=== PATIENT | male | born 1950 | race African-American/Black ===

== ENCOUNTER 2019-02-17 12:04 | Inpatient (IN) | payer OTHER ==
[2019-02-17] VITALS (32 sets, daily range): BP systolic 115–216; BP diastolic 70–147
[~2019-02-17] VITALS: Ht 177.8 cm; Wt 74.4 kg
[2019-02-17 12:49] LABS: HEMATOCRIT. 41.1 % (42.0-52.0); HEMOGLOBIN. 14.2 g/dL (14.0-18.0); MEAN CORPUSCULAR HEMOGLOBIN 32.5 pg (28.0-32.0); MEAN CORPUSCULAR VOLUME 93.9 fL (80.0-94.0); RED BLOOD CELL COUNT 4.37 mill/uL (4.7-6.1)
[2019-02-17 12:55] LABS: CHLORIDE 108 mEq/L (98-107)
[2019-02-17 12:56] LABS: PROTHROMBIN TIME 10.4 sec (9.6-11.0)
[2019-02-17 13:03] LABS: LDL CHOLESTEROL 82 mg/dL (5-100)
[2019-02-17 13:05] LABS: ETHANOL BLOOD < 10 mg/dL
[2019-02-17 13:11] LABS: PLATELET 157 x1000/uL (130-400)
[2019-02-17] MEDS ORDERED: ETOMIDATE 2MG/ML 10ML VIAL IV ONE ×2 (13:30→14:34)
[2019-02-17] MEDS ORDERED: SUCCINYLCHOLINE CHLORIDE 200MG/10ML IV ONE ×2 (13:30→14:34)
[2019-02-17] MEDS ORDERED: HYDRALAZINE 20MG/ML VIAL IV ONE (13:30)
[2019-02-17 13:40] LABS: PLATELET ESTIMATE NORMAL
[2019-02-17] MEDS ORDERED: ONDANSETRON HCL 4MG/2ML INJ IV PRN (13:45)
[2019-02-17] MEDS ORDERED: SODIUM CHLORIDE 0.9% 10ML VIAL ONE (14:34)
[2019-02-17 14:55] LABS: CLARITY URINE CLEAR (CLEAR); COLOR URINE YELLOW (YELLOW); KETONES URINE NEGATIVE (NEGATIVE); LEUKOCYTE ESTERASE URINE NEGATIVE (NEGATIVE); NITRITE URINE NEGATIVE (NEGATIVE); OCCULT BLOOD URINE 2+ (NEGATIVE); PH URINE 7.5 (4.5-8.0); PROTEIN URINE 4+ (NEGATIVE); SPECIFIC GRAVITY URINE 1.014 (1.005-1.030); UROBILINOGEN URINE 0.2 E.U./dL (0.2-1.0)
[2019-02-17] MEDS ORDERED: PIPERACILLIN/TAZOBACTAM 3.375 G in DEXT 5% WATER 100 ML IV SCH (15:00)
[2019-02-17] MEDS ORDERED: IPRATROPIUM/ALBUTEROL 0.5-3(2.5)MG/3ML NEB HHN PRN (15:00)
[2019-02-17] MEDS ORDERED: PROPOFOL 10MG/ML 100ML 100 ML IV SCH (15:00)
[2019-02-17 15:11] LABS: *AMPHETAMINES SCREEN URINE NEGATIVE (NEGATIVE); *BARBITURATES SCREEN URINE NEGATIVE (NEGATIVE); *BENZODIAZEPINES SCREEN URINE NEGATIVE (NEGATIVE); *COCAINE SCREEN URINE NEGATIVE (NEGATIVE); METHADONE URINE SCREEN NEGATIVE (NEGATIVE); OPIATES URINE SCREEN NEGATIVE (NEGATIVE)
[2019-02-17 15:12] LABS: CANNABINOID URINE SCREEN PRESUMTIVE POSITIVE (NEGATIVE); PHENCYCLIDINE URINE SCREEN NEGATIVE (NEGATIVE)
[2019-02-17 15:35] LABS: BG BASE EXCESS -3.8 mmol/L (-2.0-2.0); BG CARBOXYHEMOGLOBIN 0.6 % (0.5-1.5); BG DEOXYHEMOGLOBIN 0.2 % (0.0-5.0); BG HCO3 ACT 19.6 mmol/L (22.0-26.0); BG METHEMOGLOBIN 0.5 % (0.0-1.5); BG OXYGEN SATURATION 99.8 % (92.0-98.5); BG OXYHEMOGLOBIN 98.7 % (94.0-97.0); BG PCO2 31.6 mmHg (35.0-45.0); BG PO2 567.3 mmHg (75.0-100.0); BG SAMPLE SITE RIGHT RADIAL; BG TIDAL VOLUME(mL) 500 mL; BG TOTAL HEMOGLOBIN 16.2 g/dL (12.0-18.0); BG VENT MODE VENT - A/C; BG VENT RATE 16 set
[2019-02-17 15:40] LABS: CREATINE KINASE 184 IU/L (39-308)
[2019-02-17] MEDS ORDERED: LEVETIRACETAM 500 MG in SODIUM CHLORIDE 0.9% 100 ML IV SCH (16:30)
[2019-02-17] MEDS ORDERED: MANNITOL 20% (20GM/100ML) BAG 500ML PREMIX IV ONE (16:30)
[2019-02-17] MEDS ORDERED: NICARDIPINE 100 MG in SODIUM CHLORIDE 0.9% 60 ML IV PRN (16:30)
[2019-02-17] MEDS: NICARDIPINE 100 MG in SODIUM CHLORIDE 0.9% 60 ML IV PRN ×2 (16:45→22:57)
[2019-02-17] MEDS: MORPHINE SULFATE 4 MG/ML CPJ (NOT FOR IM USE) IV PRN ×3 (17:04→19:33)
[2019-02-17] MEDS: DEXT 5%/LACTATED RINGERS 1,000 ML IV SCH (17:04)
[2019-02-17] MEDS ORDERED: MANNITOL 20% 250 ML IV ONE (17:15)
[2019-02-17] MEDS: DEXAMETHASONE 4MG/ML 1ML VIAL IV SCH ×2 (17:27→18:00)
[2019-02-17] MEDS ORDERED: MORPHINE SULFATE 4 MG/ML CPJ (NOT FOR IM USE) IV NR (18:15)
[2019-02-17] MEDS ORDERED: PIPERACILLIN/TAZOBACTAM 2.25 G in DEXTROSE 5% WATER 50 ML IV SCH (18:30)
[2019-02-17] MEDS ORDERED: LEVETIRACETAM 500MG PREMIX 100 ML IV SCH (18:30)
[2019-02-17] MEDS: PROPOFOL 10MG/ML 100ML 100 ML IV PRN (19:41)
[2019-02-17] MEDS ORDERED: MORPHINE SULFATE 2 MG/ML CPJ (NOT FOR IM USE) IV PRN (20:15)
[2019-02-17] MEDS: MORPHINE SULFATE 2 MG/ML CPJ (NOT FOR IM USE) IV PRN ×2 (20:27→21:25)
[2019-02-17] MEDS: IPRATROPIUM/ALBUTEROL 0.5-3(2.5)MG/3ML NEB HHN SCH (20:48)
[2019-02-17] MEDS: PIPERACILLIN/TAZOBACTAM 2.25 G in DEXTROSE 5% WATER 50 ML IV SCH (20:58)
[2019-02-17] MEDS ORDERED: HEPARIN 5000 UNITS/ML VIAL SUBCUT SCH (21:00)
[2019-02-17] MEDS: LEVETIRACETAM 500MG PREMIX 100 ML IV SCH (21:19)
[2019-02-18] VITALS (94 sets, daily range): BP systolic 99–162; BP diastolic 57–99
[2019-02-18 00:07] LABS: HEPATITIS B SURFACE ANTIGEN NEGATIVE
[2019-02-18 00:37] LABS: HEPATITIS A AB IGM NEGATIVE (NEGATIVE)
[2019-02-18] MEDS: DEXAMETHASONE 4MG/ML 1ML VIAL IV SCH ×5 (00:57→23:43)
[2019-02-18] MEDS: PROPOFOL 10MG/ML 100ML 100 ML IV PRN ×2 (01:45→20:44)
[2019-02-18] MEDS: PIPERACILLIN/TAZOBACTAM 2.25 G in DEXTROSE 5% WATER 50 ML IV SCH ×4 (02:38→20:38)
[2019-02-18] MEDS: IPRATROPIUM/ALBUTEROL 0.5-3(2.5)MG/3ML NEB HHN SCH ×4 (02:57→20:34)
[2019-02-18 05:51] LABS: BASOPHILS % 0.2 % (0.0-2.0); HEMATOCRIT. 39.2 % (42.0-52.0); HEMOGLOBIN. 13.5 g/dL (14.0-18.0); LYMPHOCYTES % 10.9 % (20.0-50.0); MEAN CORPUSCULAR HEMOGLOBIN 32.3 pg (28.0-32.0); MEAN CORPUSCULAR VOLUME 93.7 fL (80.0-94.0); MEAN PLATELET VOLUME 9.4 fl (7.4-10.4); MONOCYTES % 3.9 % (2.0-8.0); PLATELET 147 x1000/uL (130-400); RED BLOOD CELL COUNT 4.18 mill/uL (4.7-6.1); RED CELL DISTRIBUTION WIDTH 14.1 % (11.6-14.6)
[2019-02-18 05:55] LABS: CHLORIDE 105 mEq/L (98-107)
[2019-02-18 06:14] LABS: CREATINE KINASE 281 IU/L (39-308); T4 FREE 1.02 ng/dL (0.76-1.46)
[2019-02-18] MEDS: NICARDIPINE 100 MG in SODIUM CHLORIDE 0.9% 60 ML IV PRN ×2 (07:00→17:33)
[2019-02-18] MEDS: LEVETIRACETAM 500MG PREMIX 100 ML IV SCH ×2 (08:24→20:39)
[2019-02-18 09:31] LABS: BG BASE EXCESS -5.8 mmol/L (-2.0-2.0); BG CARBOXYHEMOGLOBIN 0.3 % (0.5-1.5); BG DEOXYHEMOGLOBIN 1.2 % (0.0-5.0); BG FRACTION INSPIRED OXYGEN 40; BG HCO3 ACT 18.3 mmol/L (22.0-26.0); BG METHEMOGLOBIN 0.1 % (0.0-1.5); BG OXYGEN SATURATION 98.8 % (92.0-98.5); BG OXYHEMOGLOBIN 98.4 % (94.0-97.0); BG PH 7.374 (7.350-7.450); BG PO2 158.3 mmHg (75.0-100.0); BG SAMPLE SITE RIGHT RADIAL; BG TIDAL VOLUME(mL) 500 mL; BG VENT MODE VENT - A/C; BG VENT RATE 16 set
[2019-02-18] MEDS: DEXT 5%/LACTATED RINGERS 1,000 ML IV SCH ×2 (12:30→17:00)
[2019-02-18] MEDS: MORPHINE SULFATE 2 MG/ML CPJ (NOT FOR IM USE) IV PRN (14:12)
[2019-02-18] MEDS ORDERED: DEXTROSE 50% WATER 50ML SYRINGE IV PRN (14:15)
[2019-02-18] MEDS: BLOOD SUGAR DIAGNOSTIC STRIP TEST SCH ×2 (17:01→23:42)
[2019-02-18] MEDS: INSULIN LISPRO 100 UNITS/ML SUBCUT SCH ×2 (17:34→23:42)
[2019-02-18 20:30] LABS: *AMPHETAMINES SCREEN URINE NEGATIVE (NEGATIVE); *BARBITURATES SCREEN URINE NEGATIVE (NEGATIVE); *BENZODIAZEPINES SCREEN URINE NEGATIVE (NEGATIVE); *COCAINE SCREEN URINE NEGATIVE (NEGATIVE); METHADONE URINE SCREEN NEGATIVE (NEGATIVE); OPIATES URINE SCREEN PRESUMTIVE POSITIVE (NEGATIVE); PHENCYCLIDINE URINE SCREEN NEGATIVE (NEGATIVE)
[2019-02-18 20:32] LABS: CANNABINOID URINE SCREEN PRESUMTIVE POSITIVE (NEGATIVE)
[2019-02-19] VITALS (85 sets, daily range): BP systolic 114–198; BP diastolic 61–106
[2019-02-19] MEDS: NICARDIPINE 100 MG in SODIUM CHLORIDE 0.9% 60 ML IV PRN ×4 (01:38→23:07)
[2019-02-19] MEDS: IPRATROPIUM/ALBUTEROL 0.5-3(2.5)MG/3ML NEB HHN SCH ×4 (01:46→20:58)
[2019-02-19] MEDS: PIPERACILLIN/TAZOBACTAM 2.25 G in DEXTROSE 5% WATER 50 ML IV SCH ×4 (03:22→21:24)
[2019-02-19] MEDS: BLOOD SUGAR DIAGNOSTIC STRIP TEST SCH ×4 (05:54→23:20)
[2019-02-19] MEDS: PROPOFOL 10MG/ML 100ML 100 ML IV PRN (06:04)
[2019-02-19] MEDS: INSULIN LISPRO 100 UNITS/ML SUBCUT SCH ×4 (06:05→23:16)
[2019-02-19] MEDS: DEXAMETHASONE 4MG/ML 1ML VIAL IV SCH ×4 (06:05→23:05)
[2019-02-19 06:28] LABS: BASOPHILS % 0.2 % (0.0-2.0); HEMOGLOBIN. 12.8 g/dL (14.0-18.0); LYMPHOCYTES % 7.7 % (20.0-50.0); MEAN CORPUSCULAR HEMOGLOBIN 32.5 pg (28.0-32.0); MEAN PLATELET VOLUME 9.2 fl (7.4-10.4); MONOCYTES % 3.3 % (2.0-8.0); NEUTROPHILS % 88.8 % (40.0-76.0); PLATELET 142 x1000/uL (130-400); RED BLOOD CELL COUNT 3.94 mill/uL (4.7-6.1); RED CELL DISTRIBUTION WIDTH 14.3 % (11.6-14.6)
[2019-02-19 06:46] LABS: PHOSPHORUS 6.2 mg/dL (2.5-4.9)
[2019-02-19] MEDS: LEVETIRACETAM 500MG PREMIX 100 ML IV SCH ×2 (08:34→21:23)
[2019-02-19 09:11] LABS: CREATINE KINASE 213 IU/L (39-308)
[2019-02-19 10:44] LABS: BG BASE EXCESS -5.5 mmol/L (-2.0-2.0); BG CARBOXYHEMOGLOBIN 0.2 % (0.5-1.5); BG FRACTION INSPIRED OXYGEN 40; BG HCO3 ACT 18.1 mmol/L (22.0-26.0); BG METHEMOGLOBIN 0.3 % (0.0-1.5); BG OXYHEMOGLOBIN 98.5 % (94.0-97.0); BG PH 7.399 (7.350-7.450); BG PO2 182.4 mmHg (75.0-100.0); BG SAMPLE SITE RIGHT RADIAL; BG TIDAL VOLUME(mL) 500 mL; BG VENT MODE VENT - A/C; BG VENT RATE 16 set
[2019-02-19] MEDS ORDERED: PROPOFOL 10MG/ML 100ML 100 ML IV PRN (11:00)
[2019-02-19] MEDS: DEXT 5%/LACTATED RINGERS 1,000 ML IV SCH (13:26)
[2019-02-19] MEDS ORDERED: MORPHINE SULFATE 2 MG/ML CPJ (NOT FOR IM USE) IV NR (15:21)
[2019-02-19 16:02] LABS: BG BASE EXCESS -6.4 mmol/L (-2.0-2.0); BG CARBOXYHEMOGLOBIN 0.1 % (0.5-1.5); BG DEOXYHEMOGLOBIN 1.2 % (0.0-5.0); BG FRACTION INSPIRED OXYGEN 40; BG HCO3 ACT 18.1 mmol/L (22.0-26.0); BG METHEMOGLOBIN 0.2 % (0.0-1.5); BG OXYGEN SATURATION 98.8 % (92.0-98.5); BG OXYHEMOGLOBIN 98.5 % (94.0-97.0); BG PCO2 33.2 mmHg (35.0-45.0); BG PH 7.355 (7.350-7.450); BG PRESSURE SUPPORT 8; BG SAMPLE SITE RIGHT RADIAL; BG TOTAL HEMOGLOBIN 13.4 g/dL (12.0-18.0); BG VENT MODE VENT - CPAP
[2019-02-20] VITALS (93 sets, daily range): BP systolic 105–199; BP diastolic 39–135
[2019-02-20] MEDS: MORPHINE SULFATE 2 MG/ML CPJ (NOT FOR IM USE) IV PRN (01:01)
[2019-02-20] MEDS: IPRATROPIUM/ALBUTEROL 0.5-3(2.5)MG/3ML NEB HHN SCH ×4 (03:14→20:29)
[2019-02-20] MEDS: NICARDIPINE 100 MG in SODIUM CHLORIDE 0.9% 60 ML IV PRN ×3 (05:59→18:50)
[2019-02-20 06:08] LABS: HEMATOCRIT. 33.5 % (42.0-52.0); HEMOGLOBIN. 11.3 g/dL (14.0-18.0); MEAN CORPUSCULAR VOLUME 94.5 fL (80.0-94.0); MEAN PLATELET VOLUME 9.4 fl (7.4-10.4); PLATELET 138 x1000/uL (130-400); RED BLOOD CELL COUNT 3.54 mill/uL (4.7-6.1); RED CELL DISTRIBUTION WIDTH 14.5 % (11.6-14.6)
[2019-02-20 06:09] LABS: HIV SCREEN 4G Non Reactive (Non Reactive)
[2019-02-20] MEDS: DEXAMETHASONE 4MG/ML 1ML VIAL IV SCH ×4 (06:34→23:57)
[2019-02-20] MEDS: PIPERACILLIN/TAZOBACTAM 2.25 G in DEXTROSE 5% WATER 50 ML IV SCH ×3 (06:34→22:12)
[2019-02-20] MEDS: BLOOD SUGAR DIAGNOSTIC STRIP TEST SCH ×4 (06:40→23:47)
[2019-02-20] MEDS: INSULIN LISPRO 100 UNITS/ML SUBCUT SCH ×4 (06:44→23:57)
[2019-02-20 07:44] LABS: BG BASE EXCESS -5.1 mmol/L (-2.0-2.0); BG CARBOXYHEMOGLOBIN 0.3 % (0.5-1.5); BG HCO3 ACT 18.6 mmol/L (22.0-26.0); BG METHEMOGLOBIN 0.2 % (0.0-1.5); BG OXYHEMOGLOBIN 93.5 % (94.0-97.0); BG PCO2 30.5 mmHg (35.0-45.0); BG PH 7.403 (7.350-7.450); BG PO2 73.7 mmHg (75.0-100.0); BG SAMPLE SITE RIGHT RADIAL; BG TOTAL HEMOGLOBIN 12.1 g/dL (12.0-18.0); BG VENT MODE ROOM AIR
[2019-02-20] MEDS: LEVETIRACETAM 500MG PREMIX 100 ML IV SCH ×2 (08:36→20:56)
[2019-02-20] MEDS: DEXT 5%/LACTATED RINGERS 1,000 ML IV SCH (08:47)
[2019-02-20] MEDS ORDERED: LABETALOL 5MG/ML SYR 20 MG/4 ML SYRINGE IV SCH (12:30)
[2019-02-20] MEDS ORDERED: AMLODIPINE 5MG TABLET PO SCH (12:30)
[2019-02-20 12:41] LABS: PLATELET ESTIMATE NORMAL
[2019-02-20] MEDS: AMLODIPINE 5MG TABLET PO SCH ×2 (13:36→17:40)
[2019-02-20] MEDS: METOPROLOL TARTRATE 25MG TABLET PO SCH ×2 (13:36→20:20)
[2019-02-20] MEDS ORDERED: POTASSIUM CHLORIDE 20MEQ/PACKET PO SCH ×2 (20:00→22:00)
[2019-02-21] VITALS (85 sets, daily range): BP systolic 102–191; BP diastolic 49–169
[2019-02-21] MEDS: NICARDIPINE 100 MG in SODIUM CHLORIDE 0.9% 60 ML IV PRN ×4 (02:14→23:44)
[2019-02-21] MEDS: IPRATROPIUM/ALBUTEROL 0.5-3(2.5)MG/3ML NEB HHN SCH ×4 (02:43→20:05)
[2019-02-21] MEDS: MORPHINE SULFATE 2 MG/ML CPJ (NOT FOR IM USE) IV PRN ×3 (03:55→23:23)
[2019-02-21] MEDS: HYDRALAZINE 20MG/ML VIAL IV PRN ×2 (04:37→10:19)
[2019-02-21 05:20] LABS: HEMATOCRIT. 32.8 % (42.0-52.0); HEMOGLOBIN. 11.3 g/dL (14.0-18.0); MEAN CORPUSCULAR HEMOGLOBIN 32.6 pg (28.0-32.0); MEAN CORPUSCULAR VOLUME 94.9 fL (80.0-94.0); MEAN PLATELET VOLUME 9.1 fl (7.4-10.4); PLATELET 141 x1000/uL (130-400); RED BLOOD CELL COUNT 3.45 mill/uL (4.7-6.1); RED CELL DISTRIBUTION WIDTH 14.3 % (11.6-14.6)
[2019-02-21] MEDS: BLOOD SUGAR DIAGNOSTIC STRIP TEST SCH ×4 (05:30→23:24)
[2019-02-21] MEDS: PIPERACILLIN/TAZOBACTAM 2.25 G in DEXTROSE 5% WATER 50 ML IV SCH ×3 (05:36→20:50)
[2019-02-21] MEDS: INSULIN LISPRO 100 UNITS/ML SUBCUT SCH ×4 (05:36→23:25)
[2019-02-21] MEDS: DEXAMETHASONE 4MG/ML 1ML VIAL IV SCH ×4 (05:36→23:23)
[2019-02-21] MEDS: DEXT 5%/LACTATED RINGERS 1,000 ML IV SCH ×2 (05:42→20:51)
[2019-02-21] MEDS: METOPROLOL TARTRATE 25MG TABLET PO SCH (08:35)
[2019-02-21] MEDS: AMLODIPINE 5MG TABLET PO SCH ×3 (08:35→17:24)
[2019-02-21] MEDS: ACETAMINOPHEN 325MG TABLET PO PRN (08:35)
[2019-02-21] MEDS: LEVETIRACETAM 500MG PREMIX 100 ML IV SCH ×2 (08:36→20:50)
[2019-02-21 11:14] LABS: PLATELET ESTIMATE NORMAL
[2019-02-21] MEDS ORDERED: POTASSIUM CHLORIDE 20MEQ/PACKET PO SCH (12:15)
[2019-02-21] MEDS: LABETALOL HCL 200MG TABLET PO SCH ×2 (13:03→20:51)
[2019-02-22] VITALS (72 sets, daily range): BP systolic 119–182; BP diastolic 69–125
[2019-02-22] MEDS: IPRATROPIUM/ALBUTEROL 0.5-3(2.5)MG/3ML NEB HHN SCH ×4 (02:39→20:45)
[2019-02-22 05:37] LABS: HEMATOCRIT. 35.3 % (42.0-52.0); MEAN CORPUSCULAR HEMOGLOBIN 32.2 pg (28.0-32.0); MEAN CORPUSCULAR VOLUME 94.5 fL (80.0-94.0); MEAN PLATELET VOLUME 9.5 fl (7.4-10.4); PLATELET 136 x1000/uL (130-400); RED BLOOD CELL COUNT 3.73 mill/uL (4.7-6.1); RED CELL DISTRIBUTION WIDTH 14.6 % (11.6-14.6)
[2019-02-22] MEDS: PIPERACILLIN/TAZOBACTAM 2.25 G in DEXTROSE 5% WATER 50 ML IV SCH ×3 (06:15→21:58)
[2019-02-22] MEDS: HYDRALAZINE 20MG/ML VIAL IV PRN (06:16)
[2019-02-22] MEDS: DEXAMETHASONE 4MG/ML 1ML VIAL IV SCH ×3 (06:16→17:53)
[2019-02-22] MEDS: BLOOD SUGAR DIAGNOSTIC STRIP TEST SCH ×3 (06:17→17:49)
[2019-02-22] MEDS: INSULIN LISPRO 100 UNITS/ML SUBCUT SCH ×3 (06:19→17:49)
[2019-02-22] MEDS: NICARDIPINE 100 MG in SODIUM CHLORIDE 0.9% 60 ML IV PRN ×3 (06:48→22:17)
[2019-02-22] MEDS: SODIUM CHLORIDE 0.45% 1,000 ML IV SCH (07:55)
[2019-02-22] MEDS: LABETALOL HCL 200MG TABLET PO SCH ×2 (08:36→21:57)
[2019-02-22] MEDS: AMLODIPINE 5MG TABLET PO SCH ×3 (08:36→17:53)
[2019-02-22] MEDS: LEVETIRACETAM 500MG PREMIX 100 ML IV SCH ×2 (08:38→21:57)
[2019-02-22] MEDS ORDERED: LORAZEPAM 2MG/ML CPJ IV SCH ×2 (11:30→16:45)
[2019-02-22 13:18] LABS: PLATELET ESTIMATE NORMAL
[2019-02-22] MEDS ORDERED: LORAZEPAM 2MG/ML CPJ IV PRN (21:00)
[2019-02-22] MEDS: MORPHINE SULFATE 2 MG/ML CPJ (NOT FOR IM USE) IV PRN (22:09)
[2019-02-23] VITALS (95 sets, daily range): BP systolic 26–177; BP diastolic 16–98
[2019-02-23] MEDS: INSULIN LISPRO 100 UNITS/ML SUBCUT SCH ×4 (01:06→18:25)
[2019-02-23] MEDS: DEXAMETHASONE 4MG/ML 1ML VIAL IV SCH ×4 (01:10→18:25)
[2019-02-23] MEDS: IPRATROPIUM/ALBUTEROL 0.5-3(2.5)MG/3ML NEB HHN SCH ×4 (01:15→20:33)
[2019-02-23] MEDS: MORPHINE SULFATE 2 MG/ML CPJ (NOT FOR IM USE) IV PRN (02:10)
[2019-02-23] MEDS: SODIUM CHLORIDE 0.45% 1,000 ML IV SCH (04:21)
[2019-02-23] MEDS: NICARDIPINE 100 MG in SODIUM CHLORIDE 0.9% 60 ML IV PRN ×3 (05:08→19:45)
[2019-02-23] MEDS: BLOOD SUGAR DIAGNOSTIC STRIP TEST SCH ×4 (06:00→17:56)
[2019-02-23 06:25] LABS: HEMATOCRIT. 36.6 % (42.0-52.0); HEMOGLOBIN. 12.3 g/dL (14.0-18.0); MEAN CORPUSCULAR HEMOGLOBIN 31.9 pg (28.0-32.0); MEAN CORPUSCULAR VOLUME 94.7 fL (80.0-94.0); MEAN PLATELET VOLUME 9.6 fl (7.4-10.4); PLATELET 145 x1000/uL (130-400); RED BLOOD CELL COUNT 3.86 mill/uL (4.7-6.1); RED CELL DISTRIBUTION WIDTH 14.9 % (11.6-14.6)
[2019-02-23] MEDS: PIPERACILLIN/TAZOBACTAM 2.25 G in DEXTROSE 5% WATER 50 ML IV SCH ×3 (06:43→21:59)
[2019-02-23] MEDS: AMLODIPINE 5MG TABLET PO SCH ×3 (08:30→22:02)
[2019-02-23] MEDS: LABETALOL HCL 200MG TABLET PO SCH ×3 (08:30→22:00)
[2019-02-23] MEDS: LEVETIRACETAM 500MG PREMIX 100 ML IV SCH ×2 (12:17→21:59)
[2019-02-23 13:00] LABS: PLATELET ESTIMATE NORMAL
[2019-02-23 15:10] LABS: A/G RATIO 1.1 (0.7-1.7); ALBUMIN 3.1 g/dL (2.9-4.4); ALPHA-1-GLOBULIN 0.2 g/dL (0.0-0.4); ALPHA-2-GLOBULIN 0.7 g/dL (0.4-1.0); BETA GLOBULIN 0.8 g/dL (0.7-1.3); GLOBULIN TOTAL 2.7 g/dL (2.2-3.9); M-SPIKE Not Observed g/dL (Not Observed); TOTAL PROTEIN SERUM 5.8 g/dL (6.0-8.5)
[2019-02-23] MEDS: LOSARTAN POTASSIUM 25 MG TABLET PO SCH (18:25)
[2019-02-24] VITALS (92 sets, daily range): BP systolic 118–173; BP diastolic 66–105
[2019-02-24] MEDS: DEXAMETHASONE 4MG/ML 1ML VIAL IV SCH ×4 (00:24→17:35)
[2019-02-24] MEDS: BLOOD SUGAR DIAGNOSTIC STRIP TEST SCH ×4 (00:24→17:39)
[2019-02-24] MEDS: SODIUM CHLORIDE 0.45% 1,000 ML IV SCH (00:31)
[2019-02-24] MEDS: INSULIN LISPRO 100 UNITS/ML SUBCUT SCH ×4 (00:32→17:38)
[2019-02-24] MEDS: IPRATROPIUM/ALBUTEROL 0.5-3(2.5)MG/3ML NEB HHN SCH ×4 (02:10→20:55)
[2019-02-24 05:48] LABS: HEMATOCRIT. 38.5 % (42.0-52.0); MEAN CORPUSCULAR VOLUME 94.9 fL (80.0-94.0); MEAN PLATELET VOLUME 9.5 fl (7.4-10.4); PLATELET 161 x1000/uL (130-400); RED BLOOD CELL COUNT 4.06 mill/uL (4.7-6.1); RED CELL DISTRIBUTION WIDTH 14.6 % (11.6-14.6)
[2019-02-24] MEDS: LABETALOL HCL 200MG TABLET PO SCH ×3 (06:21→21:58)
[2019-02-24] MEDS: PIPERACILLIN/TAZOBACTAM 2.25 G in DEXTROSE 5% WATER 50 ML IV SCH ×3 (06:24→21:57)
[2019-02-24] MEDS: AMLODIPINE 5MG TABLET PO SCH ×2 (08:22→21:56)
[2019-02-24] MEDS: LOSARTAN POTASSIUM 25 MG TABLET PO SCH (08:22)
[2019-02-24] MEDS: LEVETIRACETAM 500MG PREMIX 100 ML IV SCH ×2 (08:22→21:57)
[2019-02-24] MEDS ORDERED: DEXT 5% WATER 500 ML IV ONE (09:30)
[2019-02-24] MEDS: NICARDIPINE 100 MG in SODIUM CHLORIDE 0.9% 60 ML IV PRN ×2 (09:58→17:35)
[2019-02-24 13:10] LABS: PLATELET ESTIMATE NORMAL
[2019-02-24] MEDS: LOSARTAN POTASSIUM 50 MG TABLET PO SCH (21:57)
[2019-02-25] VITALS (96 sets, daily range): BP systolic 122–189; BP diastolic 73–125
[2019-02-25] MEDS: DEXAMETHASONE 4MG/ML 1ML VIAL IV SCH ×4 (00:31→17:29)
[2019-02-25] MEDS: INSULIN LISPRO 100 UNITS/ML SUBCUT SCH ×4 (00:34→17:30)
[2019-02-25] MEDS: BLOOD SUGAR DIAGNOSTIC STRIP TEST SCH ×4 (00:35→17:20)
[2019-02-25] MEDS: IPRATROPIUM/ALBUTEROL 0.5-3(2.5)MG/3ML NEB HHN SCH ×4 (01:18→21:30)
[2019-02-25 05:12] LABS: HEMATOCRIT. 42.8 % (42.0-52.0); HEMOGLOBIN. 14.3 g/dL (14.0-18.0); MEAN CORPUSCULAR HEMOGLOBIN 31.6 pg (28.0-32.0); MEAN CORPUSCULAR VOLUME 94.8 fL (80.0-94.0); MEAN PLATELET VOLUME 9.6 fl (7.4-10.4); PLATELET 169 x1000/uL (130-400); RED BLOOD CELL COUNT 4.52 mill/uL (4.7-6.1); RED CELL DISTRIBUTION WIDTH 14.8 % (11.6-14.6)
[2019-02-25] MEDS: LABETALOL HCL 200MG TABLET PO SCH ×3 (06:50→21:37)
[2019-02-25] MEDS: NICARDIPINE 100 MG in SODIUM CHLORIDE 0.9% 60 ML IV PRN (07:02)
[2019-02-25 08:11] LABS: PLATELET ESTIMATE NORMAL
[2019-02-25] MEDS: LOSARTAN POTASSIUM 50 MG TABLET PO SCH (08:29)
[2019-02-25] MEDS: AMLODIPINE 5MG TABLET PO SCH ×2 (08:29→21:37)
[2019-02-25] MEDS: LEVETIRACETAM 500MG PREMIX 100 ML IV SCH ×2 (08:30→21:37)
[2019-02-25] MEDS ORDERED: INSULIN GLARGINE UD 100 UNITS/ML SYR SUBCUT SCH (10:00)
[2019-02-25] MEDS: DEXTROSE 5% WATER 1,000 ML IV SCH (10:11)
[2019-02-25] MEDS ORDERED: NICARDIPINE 100 MG in SODIUM CHLORIDE 0.9% 60 ML IV SCH (12:00)
[2019-02-25 15:09] LABS: PHOSPHORUS 3.6 mg/dL (2.5-4.9)
[2019-02-25] MEDS: HYDRALAZINE 20MG/ML VIAL IV PRN (17:24)
[2019-02-26] VITALS (70 sets, daily range): BP systolic 118–200; BP diastolic 48–152
[2019-02-26] MEDS: BLOOD SUGAR DIAGNOSTIC STRIP TEST SCH ×4 (00:02→18:28)
[2019-02-26] MEDS: HYDRALAZINE 20MG/ML VIAL IV PRN ×3 (00:08→12:23)
[2019-02-26] MEDS: DEXAMETHASONE 4MG/ML 1ML VIAL IV SCH ×4 (00:08→18:42)
[2019-02-26] MEDS: INSULIN LISPRO 100 UNITS/ML SUBCUT SCH ×4 (00:10→18:00)
[2019-02-26] MEDS: IPRATROPIUM/ALBUTEROL 0.5-3(2.5)MG/3ML NEB HHN SCH ×4 (02:29→22:56)
[2019-02-26] MEDS: LABETALOL HCL 200MG TABLET PO SCH ×3 (06:25→21:41)
[2019-02-26] MEDS: AMLODIPINE 10MG TABLET PO SCH ×2 (09:23→21:40)
[2019-02-26] MEDS: HYDRALAZINE HCL 25MG TABLET PO SCH ×3 (09:23→21:43)
[2019-02-26] MEDS: INSULIN GLARGINE UD 100 UNITS/ML SYR SUBCUT SCH (09:24)
[2019-02-26] MEDS: LEVETIRACETAM 500MG PREMIX 100 ML IV SCH ×2 (09:24→21:40)
[2019-02-26] MEDS: DEXTROSE 5% WATER 1,000 ML IV SCH ×2 (09:25→19:47)
[2019-02-26 15:35] LABS: HEMATOCRIT. 43.2 % (42.0-52.0); HEMOGLOBIN. 14.3 g/dL (14.0-18.0); MEAN CORPUSCULAR HEMOGLOBIN 31.5 pg (28.0-32.0); MEAN CORPUSCULAR VOLUME 95.3 fL (80.0-94.0); PLATELET 158 x1000/uL (130-400); RED BLOOD CELL COUNT 4.53 mill/uL (4.7-6.1); RED CELL DISTRIBUTION WIDTH 14.7 % (11.6-14.6)
[2019-02-26 17:42] LABS: PLATELET ESTIMATE NORMAL
[2019-02-27] VITALS: BP 143/94
[2019-02-27] MEDS: BLOOD SUGAR DIAGNOSTIC STRIP TEST SCH ×4 (00:41→17:32)
[2019-02-27] MEDS: DEXAMETHASONE 4MG/ML 1ML VIAL IV SCH ×4 (00:41→17:40)
[2019-02-27] MEDS: INSULIN LISPRO 100 UNITS/ML SUBCUT SCH ×4 (00:50→17:33)
[2019-02-27] MEDS: IPRATROPIUM/ALBUTEROL 0.5-3(2.5)MG/3ML NEB HHN SCH ×4 (03:36→21:03)
[2019-02-27] MEDS: HYDRALAZINE 20MG/ML VIAL IV PRN (03:59)
[2019-02-27 04:00] VITALS: BP 169/105
[2019-02-27] MEDS: HYDRALAZINE HCL 25MG TABLET PO SCH (05:50)
[2019-02-27] MEDS: LABETALOL HCL 200MG TABLET PO SCH ×3 (05:50→21:00)
[2019-02-27 08:08] LABS: HEMATOCRIT. 41.9 % (42.0-52.0); HEMOGLOBIN. 13.6 g/dL (14.0-18.0); MEAN CORPUSCULAR HEMOGLOBIN 31.1 pg (28.0-32.0); MEAN CORPUSCULAR VOLUME 95.4 fL (80.0-94.0); MEAN PLATELET VOLUME 10.2 fl (7.4-10.4); PLATELET 150 x1000/uL (130-400); RED BLOOD CELL COUNT 4.39 mill/uL (4.7-6.1); RED CELL DISTRIBUTION WIDTH 14.9 % (11.6-14.6)
[2019-02-27] MEDS: AMLODIPINE 10MG TABLET PO SCH ×2 (09:09→20:59)
[2019-02-27] MEDS: LEVETIRACETAM 500MG PREMIX 100 ML IV SCH ×2 (09:09→20:59)
[2019-02-27] MEDS: DEXTROSE 5% WATER 1,000 ML IV SCH (09:59)
[2019-02-27] MEDS: INSULIN GLARGINE UD 100 UNITS/ML SYR SUBCUT SCH (10:00)
[2019-02-27 12:00] VITALS: BP 173/100
[2019-02-27 12:48] LABS: PLATELET ESTIMATE NORMAL
[2019-02-27] MEDS: CLONIDINE 0.1MG TABLET PO SCH ×2 (14:34→21:00)
[2019-02-27] MEDS: HYDRALAZINE HCL 50MG TABLET PO SCH ×2 (14:35→21:00)
[2019-02-27 16:00] VITALS: BP 144/88
[2019-02-27 20:00] VITALS: BP 153/98
[2019-02-27] MEDS ORDERED: DEXT 5% WATER 500 ML IV ONE (20:00)
[2019-02-28] VITALS: BP 145/89
[2019-02-28] MEDS: DEXAMETHASONE 4MG/ML 1ML VIAL IV SCH ×4 (00:20→17:03)
[2019-02-28] MEDS: BLOOD SUGAR DIAGNOSTIC STRIP TEST SCH ×4 (00:20→17:03)
[2019-02-28] MEDS: INSULIN LISPRO 100 UNITS/ML SUBCUT SCH ×4 (00:21→17:12)
[2019-02-28 04:00] VITALS: BP 144/86
[2019-02-28] MEDS: DEXTROSE 5% WATER 1,000 ML IV SCH ×2 (04:52→18:21)
[2019-02-28] MEDS: LABETALOL HCL 200MG TABLET PO SCH ×3 (05:41→23:03)
[2019-02-28] MEDS: HYDRALAZINE HCL 50MG TABLET PO SCH ×3 (05:42→23:03)
[2019-02-28] MEDS: CLONIDINE 0.1MG TABLET PO SCH ×3 (05:42→22:00)
[2019-02-28 08:04] LABS: HEMATOCRIT. 39.3 % (42.0-52.0); HEMOGLOBIN. 13.2 g/dL (14.0-18.0); MEAN CORPUSCULAR HEMOGLOBIN 31.7 pg (28.0-32.0); MEAN CORPUSCULAR VOLUME 94.5 fL (80.0-94.0); MEAN PLATELET VOLUME 10.3 fl (7.4-10.4); PLATELET 129 x1000/uL (130-400); RED BLOOD CELL COUNT 4.16 mill/uL (4.7-6.1); RED CELL DISTRIBUTION WIDTH 14.5 % (11.6-14.6)
[2019-02-28] MEDS: IPRATROPIUM/ALBUTEROL 0.5-3(2.5)MG/3ML NEB HHN SCH ×3 (08:28→20:31)
[2019-02-28] MEDS: AMLODIPINE 10MG TABLET PO SCH ×2 (09:45→20:54)
[2019-02-28] MEDS: LEVETIRACETAM 500MG PREMIX 100 ML IV SCH ×2 (09:46→20:54)
[2019-02-28] MEDS: INSULIN GLARGINE UD 100 UNITS/ML SYR SUBCUT SCH (09:52)
[2019-02-28 12:00] VITALS: BP 154/86
[2019-02-28 13:59] LABS: PLATELET ESTIMATE SLIGHTLY DECREASED
[2019-02-28 16:00] VITALS: BP 142/92
[2019-02-28 20:00] VITALS: BP 161/92
[2019-02-28] MEDS ORDERED: DEXT 5% WATER 500 ML IV ONE (20:00)
[2019-02-28] MEDS: ACETAMINOPHEN 325MG TABLET PO PRN (20:56)
[2019-03-01] VITALS (7 sets, daily range): BP systolic 148–181; BP diastolic 89–102
[2019-03-01] MEDS: DEXAMETHASONE 4MG/ML 1ML VIAL IV SCH ×5 (00:19→23:16)
[2019-03-01] MEDS: INSULIN LISPRO 100 UNITS/ML SUBCUT SCH ×5 (00:59→23:48)
[2019-03-01] MEDS: IPRATROPIUM/ALBUTEROL 0.5-3(2.5)MG/3ML NEB HHN SCH ×4 (02:44→20:29)
[2019-03-01 05:09] LABS: CLARITY URINE CLEAR (CLEAR); COLOR URINE YELLOW (YELLOW); KETONES URINE NEGATIVE (NEGATIVE); LEUKOCYTE ESTERASE URINE 1+ (NEGATIVE); NITRITE URINE NEGATIVE (NEGATIVE); OCCULT BLOOD URINE NEGATIVE (NEGATIVE); PROTEIN URINE 1+ (NEGATIVE); SPECIFIC GRAVITY URINE 1.016 (1.005-1.030); UROBILINOGEN URINE 0.2 E.U./dL (0.2-1.0)
[2019-03-01] MEDS: ACETAMINOPHEN 325MG TABLET PO PRN (05:38)
[2019-03-01] MEDS: LABETALOL HCL 200MG TABLET PO SCH ×3 (05:38→22:02)
[2019-03-01] MEDS: HYDRALAZINE HCL 50MG TABLET PO SCH ×3 (05:39→22:02)
[2019-03-01] MEDS: CLONIDINE 0.1MG TABLET PO SCH ×3 (06:00→23:16)
[2019-03-01] MEDS: BLOOD SUGAR DIAGNOSTIC STRIP TEST SCH ×5 (06:00→23:25)
[2019-03-01 07:12] LABS: HEMATOCRIT. 40.6 % (42.0-52.0); HEMOGLOBIN. 13.6 g/dL (14.0-18.0); MEAN CORPUSCULAR VOLUME 95.5 fL (80.0-94.0); MEAN PLATELET VOLUME 10.9 fl (7.4-10.4); PLATELET 113 x1000/uL (130-400); RED BLOOD CELL COUNT 4.25 mill/uL (4.7-6.1); RED CELL DISTRIBUTION WIDTH 14.5 % (11.6-14.6)
[2019-03-01 09:46] LABS: PLATELET ESTIMATE DECREASED
[2019-03-01] MEDS: LEVETIRACETAM 500MG PREMIX 100 ML IV SCH ×2 (10:00→22:05)
[2019-03-01] MEDS: AMLODIPINE 10MG TABLET PO SCH ×2 (10:01→22:00)
[2019-03-01] MEDS: INSULIN GLARGINE UD 100 UNITS/ML SYR SUBCUT SCH (10:15)
[2019-03-01] MEDS: DEXTROSE 5% WATER 1,000 ML IV SCH ×3 (10:55→19:59)
[2019-03-01] MEDS ORDERED: CEFTAZIDIME PENTAHYDRATE 1 G in DEXTROSE 5% WATER 50 ML IV SCH (17:30)
[2019-03-01] MEDS ORDERED: VANCOMYCIN 1250MG in DEXTROSE 5% WATER 250ML IV SCH (18:00)
[2019-03-01] MEDS: METRONIDAZOLE 500MG TABLET PO SCH (19:08)
[2019-03-02] VITALS: BP 137/89
[2019-03-02] MEDS: METRONIDAZOLE 500MG TABLET PO SCH ×4 (00:40→17:46)
[2019-03-02] MEDS: IPRATROPIUM/ALBUTEROL 0.5-3(2.5)MG/3ML NEB HHN SCH ×4 (02:04→21:08)
[2019-03-02 04:00] VITALS: BP 138/93
[2019-03-02] MEDS: CEFTAZIDIME PENTAHYDRATE 1 G in DEXTROSE 5% WATER 50 ML IV SCH ×2 (05:18→17:46)
[2019-03-02] MEDS: DEXAMETHASONE 4MG/ML 1ML VIAL IV SCH ×3 (05:18→17:46)
[2019-03-02] MEDS: HYDRALAZINE HCL 50MG TABLET PO SCH ×3 (05:19→22:00)
[2019-03-02] MEDS: LABETALOL HCL 200MG TABLET PO SCH ×3 (05:19→21:18)
[2019-03-02] MEDS: BLOOD SUGAR DIAGNOSTIC STRIP TEST SCH ×3 (05:58→17:52)
[2019-03-02] MEDS: CLONIDINE 0.1MG TABLET PO SCH ×3 (06:37→22:54)
[2019-03-02] MEDS: DEXTROSE 5% WATER 1,000 ML IV SCH ×2 (06:39→16:00)
[2019-03-02] MEDS: INSULIN LISPRO 100 UNITS/ML SUBCUT SCH ×3 (06:39→17:52)
[2019-03-02 07:48] LABS: HEMATOCRIT. 37.6 % (42.0-52.0); HEMOGLOBIN. 12.8 g/dL (14.0-18.0); MEAN CORPUSCULAR HEMOGLOBIN 31.8 pg (28.0-32.0); MEAN CORPUSCULAR VOLUME 93.6 fL (80.0-94.0); MEAN PLATELET VOLUME 10.3 fl (7.4-10.4); PLATELET 97 x1000/uL (130-400); RED BLOOD CELL COUNT 4.02 mill/uL (4.7-6.1); RED CELL DISTRIBUTION WIDTH 14.2 % (11.6-14.6)
[2019-03-02 07:53] LABS: CHLORIDE 120 mEq/L (98-107)
[2019-03-02 08:00] VITALS: BP 139/80
[2019-03-02 08:04] LABS: CREATINE KINASE 266 IU/L (39-308)
[2019-03-02] MEDS: LEVETIRACETAM 500MG PREMIX 100 ML IV SCH ×2 (09:09→20:39)
[2019-03-02] MEDS: AMLODIPINE 10MG TABLET PO SCH ×2 (09:09→20:39)
[2019-03-02] MEDS: INSULIN GLARGINE UD 100 UNITS/ML SYR SUBCUT SCH (09:58)
[2019-03-02 12:00] VITALS: BP 132/85
[2019-03-02 16:00] VITALS: BP 129/82
[2019-03-02 16:11] LABS: PLATELET ESTIMATE DECREASED
[2019-03-02 20:00] VITALS: BP 132/76
[2019-03-02] MEDS: PANTOPRAZOLE SODIUM 40 MG/VIAL IV SCH (20:39)
[2019-03-03] VITALS: BP 122/80
[2019-03-03] MEDS: IPRATROPIUM/ALBUTEROL 0.5-3(2.5)MG/3ML NEB HHN SCH ×4 (00:32→20:36)
[2019-03-03] MEDS: DEXAMETHASONE 4MG/ML 1ML VIAL IV SCH ×5 (00:40→23:50)
[2019-03-03] MEDS: METRONIDAZOLE 500MG TABLET PO SCH ×5 (00:41→23:49)
[2019-03-03] MEDS: DEXTROSE 5% WATER 1,000 ML IV SCH (00:42)
[2019-03-03] MEDS: INSULIN LISPRO 100 UNITS/ML SUBCUT SCH ×4 (00:44→17:55)
[2019-03-03 04:00] VITALS: BP 123/83
[2019-03-03] MEDS: CLONIDINE 0.1MG TABLET PO SCH ×2 (06:00→22:15)
[2019-03-03] MEDS: BLOOD SUGAR DIAGNOSTIC STRIP TEST SCH ×4 (06:00→17:55)
[2019-03-03] MEDS: CEFTAZIDIME PENTAHYDRATE 1 G in DEXTROSE 5% WATER 50 ML IV SCH (06:14)
[2019-03-03] MEDS: HYDRALAZINE HCL 50MG TABLET PO SCH ×3 (06:15→22:15)
[2019-03-03] MEDS: LABETALOL HCL 200MG TABLET PO SCH ×3 (06:15→22:15)
[2019-03-03] MEDS: ACETAMINOPHEN 325MG TABLET PO PRN (06:19)
[2019-03-03 07:40] LABS: PARTIAL THROMBOPLASTIN TIME 27.3 sec (23.4-31.0)
[2019-03-03 07:42] LABS: HEMATOCRIT. 34.7 % (42.0-52.0); HEMOGLOBIN. 11.9 g/dL (14.0-18.0); MEAN PLATELET VOLUME 10.8 fl (7.4-10.4); PLATELET 86 x1000/uL (130-400); RED BLOOD CELL COUNT 3.73 mill/uL (4.7-6.1); RED CELL DISTRIBUTION WIDTH 13.9 % (11.6-14.6)
[2019-03-03 08:00] VITALS: BP 158/90
[2019-03-03] MEDS: PANTOPRAZOLE SODIUM 40 MG/VIAL IV SCH ×2 (09:59→22:14)
[2019-03-03] MEDS: LEVETIRACETAM 500MG PREMIX 100 ML IV SCH ×2 (09:59→22:16)
[2019-03-03] MEDS: AMLODIPINE 10MG TABLET PO SCH ×2 (09:59→22:14)
[2019-03-03] MEDS ORDERED: POTASSIUM CHLORIDE 20MEQ/PACKET PO NR (10:00)
[2019-03-03] MEDS: INSULIN GLARGINE UD 100 UNITS/ML SYR SUBCUT SCH (10:00)
[2019-03-03] MEDS ORDERED: BACTERIOSTATIC SODIUM CHLORIDE 0.9% 30ML VIAL IJ ONE (11:34)
[2019-03-03 12:00] VITALS: BP 138/90
[2019-03-03 13:21] LABS: PLATELET ESTIMATE DECREASED
[2019-03-03] MEDS: CITALOPRAM HYDROBROMIDE 10MG TABLET PO SCH (14:30)
[2019-03-03 16:00] VITALS: BP 161/93
[2019-03-03] MEDS ORDERED: CEFAZOLIN 1000MG PREMIX 50 ML IV NR (16:00)
[2019-03-03] MEDS ORDERED: POTASSIUM CHLORIDE INJ 40 MEQ in DEXT 5% WATER 500 ML IV SCH (16:00)
[2019-03-03] MEDS ORDERED: FENTANYL CITRATE/PF 50MCG/ML 2ML VIAL ONE (17:00)
[2019-03-03] MEDS ORDERED: MIDAZOLAM HCL 5 MG/5 ML VIAL ONE (17:00)
[2019-03-03] MEDS ORDERED: MIDAZOLAM HCL 5 MG/5 ML VIAL IV PRN (17:05)
[2019-03-03 20:00] VITALS: BP 145/96
[2019-03-04] VITALS: BP 122/86
[2019-03-04] MEDS: BLOOD SUGAR DIAGNOSTIC STRIP TEST SCH ×4 (00:01→17:30)
[2019-03-04] MEDS: IPRATROPIUM/ALBUTEROL 0.5-3(2.5)MG/3ML NEB HHN SCH ×4 (01:27→20:11)
[2019-03-04 04:00] VITALS: BP 152/92
[2019-03-04] MEDS: METRONIDAZOLE 500MG TABLET PO SCH ×3 (05:31→17:34)
[2019-03-04] MEDS: DEXAMETHASONE 4MG/ML 1ML VIAL IV SCH ×2 (05:32→12:03)
[2019-03-04] MEDS: CLONIDINE 0.1MG TABLET PO SCH ×3 (05:32→20:53)
[2019-03-04] MEDS: LABETALOL HCL 200MG TABLET PO SCH ×3 (05:32→23:07)
[2019-03-04] MEDS: HYDRALAZINE HCL 50MG TABLET PO SCH ×3 (05:32→20:54)
[2019-03-04] MEDS: INSULIN LISPRO 100 UNITS/ML SUBCUT SCH ×4 (05:44→17:31)
[2019-03-04 07:20] LABS: HEMATOCRIT. 32.4 % (42.0-52.0); HEMOGLOBIN. 11.2 g/dL (14.0-18.0); MEAN CORPUSCULAR HEMOGLOBIN 32.2 pg (28.0-32.0); MEAN CORPUSCULAR VOLUME 92.9 fL (80.0-94.0); MEAN PLATELET VOLUME 11.2 fl (7.4-10.4); PLATELET 85 x1000/uL (130-400); RED BLOOD CELL COUNT 3.49 mill/uL (4.7-6.1); RED CELL DISTRIBUTION WIDTH 13.9 % (11.6-14.6)
[2019-03-04 08:00] VITALS: BP 134/85
[2019-03-04] MEDS: PANTOPRAZOLE SODIUM 40 MG/VIAL IV SCH ×2 (08:49→20:53)
[2019-03-04] MEDS: CITALOPRAM HYDROBROMIDE 10MG TABLET PO SCH (08:49)
[2019-03-04] MEDS: AMLODIPINE 10MG TABLET PO SCH ×2 (08:50→20:53)
[2019-03-04] MEDS: LEVETIRACETAM 500MG PREMIX 100 ML IV SCH ×2 (09:13→20:54)
[2019-03-04] MEDS: INSULIN GLARGINE UD 100 UNITS/ML SYR SUBCUT SCH (10:27)
[2019-03-04 12:13] VITALS: BP 147/88
[2019-03-04 13:24] LABS: PLATELET ESTIMATE DECREASED
[2019-03-04 16:13] VITALS: BP 129/66
[2019-03-04 20:00] VITALS: BP 169/87
[2019-03-05] VITALS: BP 101/95
[2019-03-05] MEDS: METRONIDAZOLE 500MG TABLET PO SCH ×4 (01:17→18:15)
[2019-03-05] MEDS: IPRATROPIUM/ALBUTEROL 0.5-3(2.5)MG/3ML NEB HHN SCH ×4 (01:29→20:32)
[2019-03-05 04:00] VITALS: BP_SYST 134; BP_SYST 157; BP_DIAS 71; BP_DIAS 97
[2019-03-05] MEDS: BLOOD SUGAR DIAGNOSTIC STRIP TEST SCH ×4 (05:36→17:32)
[2019-03-05] MEDS: INSULIN LISPRO 100 UNITS/ML SUBCUT SCH ×4 (06:00→17:31)
[2019-03-05] MEDS: CLONIDINE 0.1MG TABLET PO SCH ×3 (06:23→21:01)
[2019-03-05] MEDS: HYDRALAZINE HCL 50MG TABLET PO SCH ×3 (06:23→22:48)
[2019-03-05] MEDS: LABETALOL HCL 200MG TABLET PO SCH ×3 (06:24→21:01)
[2019-03-05 08:00] VITALS: BP 136/80
[2019-03-05] MEDS: PANTOPRAZOLE SODIUM 40 MG/VIAL IV SCH ×2 (10:05→21:02)
[2019-03-05] MEDS: CITALOPRAM HYDROBROMIDE 10MG TABLET PO SCH (10:05)
[2019-03-05] MEDS: AMLODIPINE 10MG TABLET PO SCH ×2 (10:06→21:02)
[2019-03-05] MEDS: LEVETIRACETAM 500MG PREMIX 100 ML IV SCH ×2 (10:07→21:01)
[2019-03-05] MEDS: INSULIN GLARGINE UD 100 UNITS/ML SYR SUBCUT SCH (10:15)
[2019-03-05 12:46] VITALS: BP 151/86
[2019-03-05 16:00] VITALS: BP 151/86
[2019-03-05 20:26] VITALS: BP 168/88
[2019-03-06 00:35] VITALS: BP 155/87
[2019-03-06] MEDS: IPRATROPIUM/ALBUTEROL 0.5-3(2.5)MG/3ML NEB HHN SCH ×4 (00:39→21:12)
[2019-03-06] MEDS: BLOOD SUGAR DIAGNOSTIC STRIP TEST SCH ×4 (00:45→18:10)
[2019-03-06] MEDS: METRONIDAZOLE 500MG TABLET PO SCH ×4 (00:46→17:41)
[2019-03-06 04:00] VITALS: BP 157/97
[2019-03-06] MEDS: INSULIN LISPRO 100 UNITS/ML SUBCUT SCH ×4 (06:00→17:53)
[2019-03-06] MEDS: LABETALOL HCL 200MG TABLET PO SCH ×3 (06:06→23:17)
[2019-03-06] MEDS: CLONIDINE 0.1MG TABLET PO SCH ×2 (06:06→13:34)
[2019-03-06] MEDS: HYDRALAZINE HCL 50MG TABLET PO SCH (06:06)
[2019-03-06 08:00] VITALS: BP 179/82
[2019-03-06 08:19] LABS: HEMATOCRIT. 35.8 % (42.0-52.0); HEMOGLOBIN. 12.5 g/dL (14.0-18.0); MEAN CORPUSCULAR HEMOGLOBIN 32.9 pg (28.0-32.0); MEAN CORPUSCULAR VOLUME 93.9 fL (80.0-94.0); MEAN PLATELET VOLUME 10.9 fl (7.4-10.4); PLATELET 98 x1000/uL (130-400); RED BLOOD CELL COUNT 3.81 mill/uL (4.7-6.1); RED CELL DISTRIBUTION WIDTH 14.1 % (11.6-14.6)
[2019-03-06] MEDS: LEVETIRACETAM 500MG PREMIX 100 ML IV SCH ×2 (09:18→21:01)
[2019-03-06] MEDS: PANTOPRAZOLE SODIUM 40 MG/VIAL IV SCH ×2 (09:19→21:01)
[2019-03-06] MEDS: CITALOPRAM HYDROBROMIDE 10MG TABLET PO SCH (09:19)
[2019-03-06] MEDS: AMLODIPINE 10MG TABLET PO SCH ×2 (09:19→21:02)
[2019-03-06] MEDS: INSULIN GLARGINE UD 100 UNITS/ML SYR SUBCUT SCH (09:39)
[2019-03-06] MEDS: HYDRALAZINE 20MG/ML VIAL IV PRN ×2 (11:17→17:40)
[2019-03-06 12:00] VITALS: BP 196/93
[2019-03-06] MEDS: HYDRALAZINE HCL 100MG TABLET PO SCH ×2 (13:35→23:17)
[2019-03-06] MEDS: DEXTROSE 5% WATER 1,000 ML IV SCH (13:44)
[2019-03-06 13:51] LABS: PLATELET ESTIMATE SLIGHTLY DECREASED
[2019-03-06 16:00] VITALS: BP 208/99
[2019-03-06] MEDS: CLONIDINE 0.1MG TABLET PO PRN (17:40)
[2019-03-06 20:00] VITALS: BP 151/91
[2019-03-06] MEDS: CLONIDINE 0.2MG TABLET PO SCH (22:00)
[2019-03-07] MEDS: METRONIDAZOLE 500MG TABLET PO SCH ×5 (00:08→22:08)
[2019-03-07] MEDS: BLOOD SUGAR DIAGNOSTIC STRIP TEST SCH ×4 (00:08→17:44)
[2019-03-07 00:10] VITALS: BP 144/81
[2019-03-07] MEDS: DEXTROSE 5% WATER 1,000 ML IV SCH ×2 (00:11→13:56)
[2019-03-07] MEDS: IPRATROPIUM/ALBUTEROL 0.5-3(2.5)MG/3ML NEB HHN SCH ×4 (01:08→20:51)
[2019-03-07 04:00] VITALS: BP 143/82
[2019-03-07] MEDS: HYDRALAZINE HCL 100MG TABLET PO SCH ×3 (05:51→22:05)
[2019-03-07] MEDS: CLONIDINE 0.2MG TABLET PO SCH ×3 (05:51→22:05)
[2019-03-07] MEDS: LABETALOL HCL 200MG TABLET PO SCH ×3 (05:54→22:05)
[2019-03-07] MEDS: INSULIN LISPRO 100 UNITS/ML SUBCUT SCH ×4 (06:00→17:51)
[2019-03-07 06:22] LABS: HEMATOCRIT. 31.5 % (42.0-52.0); HEMOGLOBIN. 11.1 g/dL (14.0-18.0); MEAN CORPUSCULAR HEMOGLOBIN 32.7 pg (28.0-32.0); MEAN CORPUSCULAR VOLUME 92.8 fL (80.0-94.0); MEAN PLATELET VOLUME 11.3 fl (7.4-10.4); PLATELET 92 x1000/uL (130-400); RED BLOOD CELL COUNT 3.39 mill/uL (4.7-6.1); RED CELL DISTRIBUTION WIDTH 13.9 % (11.6-14.6)
[2019-03-07 08:00] VITALS: BP 110/70
[2019-03-07] MEDS: AMLODIPINE 10MG TABLET PO SCH ×2 (09:00→22:06)
[2019-03-07] MEDS: LEVETIRACETAM 500MG PREMIX 100 ML IV SCH ×2 (09:21→22:05)
[2019-03-07] MEDS: CITALOPRAM HYDROBROMIDE 10MG TABLET PO SCH (09:22)
[2019-03-07] MEDS: PANTOPRAZOLE SODIUM 40 MG/VIAL IV SCH ×2 (09:22→22:05)
[2019-03-07] MEDS: INSULIN GLARGINE UD 100 UNITS/ML SYR SUBCUT SCH (09:25)
[2019-03-07 11:20] LABS: PLATELET ESTIMATE DECREASED
[2019-03-07 12:00] VITALS: BP 130/79
[2019-03-07] MEDS ORDERED: METRONIDAZOLE 500 MG PREMIX 100 ML IV SCH (15:15)
[2019-03-07 16:00] VITALS: BP 149/81
[2019-03-07] MEDS: ACETAMINOPHEN 325MG TABLET PO PRN (17:14)
[2019-03-07 20:03] LABS: CLARITY URINE CLOUDY (CLEAR); COLOR URINE YELLOW (YELLOW); KETONES URINE NEGATIVE (NEGATIVE); LEUKOCYTE ESTERASE URINE NEGATIVE (NEGATIVE); NITRITE URINE NEGATIVE (NEGATIVE); OCCULT BLOOD URINE NEGATIVE (NEGATIVE); PROTEIN URINE 1+ (NEGATIVE); SPECIFIC GRAVITY URINE 1.013 (1.005-1.030); UROBILINOGEN URINE 0.2 E.U./dL (0.2-1.0)
[2019-03-07 20:23] VITALS: BP 164/99
[2019-03-08] MEDS: BLOOD SUGAR DIAGNOSTIC STRIP TEST SCH ×4 (00:05→17:45)
[2019-03-08 00:19] VITALS: BP 134/81
[2019-03-08] MEDS: IPRATROPIUM/ALBUTEROL 0.5-3(2.5)MG/3ML NEB HHN SCH ×4 (02:32→21:38)
[2019-03-08 04:00] VITALS: BP 168/87
[2019-03-08] MEDS: METRONIDAZOLE 500MG TABLET PO SCH (05:23)
[2019-03-08] MEDS: LABETALOL HCL 200MG TABLET PO SCH ×3 (05:23→21:03)
[2019-03-08] MEDS: CLONIDINE 0.2MG TABLET PO SCH ×3 (05:23→21:03)
[2019-03-08] MEDS: HYDRALAZINE HCL 100MG TABLET PO SCH ×3 (05:23→21:03)
[2019-03-08] MEDS: INSULIN LISPRO 100 UNITS/ML SUBCUT SCH ×4 (05:24→17:46)
[2019-03-08] MEDS: DEXTROSE 5% WATER 1,000 ML IV SCH ×2 (05:27→20:55)
[2019-03-08 07:44] LABS: HEMATOCRIT. 29.7 % (42.0-52.0); HEMOGLOBIN. 10.4 g/dL (14.0-18.0); MEAN CORPUSCULAR HEMOGLOBIN 32.9 pg (28.0-32.0); MEAN PLATELET VOLUME 10.3 fl (7.4-10.4); PLATELET 88 x1000/uL (130-400); RED BLOOD CELL COUNT 3.16 mill/uL (4.7-6.1); RED CELL DISTRIBUTION WIDTH 13.9 % (11.6-14.6)
[2019-03-08 08:00] VITALS: BP 145/84
[2019-03-08] MEDS: LEVETIRACETAM 500MG PREMIX 100 ML IV SCH ×2 (09:28→20:56)
[2019-03-08] MEDS: AMLODIPINE 10MG TABLET PO SCH ×2 (09:29→20:56)
[2019-03-08] MEDS: CITALOPRAM HYDROBROMIDE 10MG TABLET PO SCH (09:29)
[2019-03-08] MEDS: PANTOPRAZOLE SODIUM 40 MG/VIAL IV SCH ×2 (09:29→20:56)
[2019-03-08] MEDS: INSULIN GLARGINE UD 100 UNITS/ML SYR SUBCUT SCH (10:13)
[2019-03-08 12:00] VITALS: BP 156/94
[2019-03-08] MEDS: AMPICILLIN SOD/SULBACTAM NA 1.5 G in SODIUM CHLORIDE 0.9% 50 ML IV SCH ×2 (13:24→20:09)
[2019-03-08 14:08] LABS: PLATELET ESTIMATE DECREASED
[2019-03-08 16:00] VITALS: BP 128/82
[2019-03-08 20:48] VITALS: BP 148/87
[2019-03-09] VITALS (8 sets, daily range): BP systolic 126–165; BP diastolic 75–95
[2019-03-09] MEDS: IPRATROPIUM/ALBUTEROL 0.5-3(2.5)MG/3ML NEB HHN SCH ×4 (01:37→21:17)
[2019-03-09] MEDS: AMPICILLIN SOD/SULBACTAM NA 1.5 G in SODIUM CHLORIDE 0.9% 50 ML IV SCH ×2 (01:52→10:01)
[2019-03-09] MEDS: HYDRALAZINE HCL 100MG TABLET PO SCH ×3 (05:51→20:55)
[2019-03-09] MEDS: DEXTROSE 5% WATER 1,000 ML IV SCH ×2 (05:51→14:55)
[2019-03-09] MEDS: BLOOD SUGAR DIAGNOSTIC STRIP TEST SCH ×4 (05:52→17:09)
[2019-03-09] MEDS: CLONIDINE 0.2MG TABLET PO SCH ×3 (05:52→20:55)
[2019-03-09] MEDS: LABETALOL HCL 200MG TABLET PO SCH ×3 (05:52→20:56)
[2019-03-09] MEDS: INSULIN LISPRO 100 UNITS/ML SUBCUT SCH ×4 (06:00→17:09)
[2019-03-09 08:34] LABS: HEMATOCRIT. 28.3 % (42.0-52.0); HEMOGLOBIN. 9.9 g/dL (14.0-18.0); MEAN CORPUSCULAR HEMOGLOBIN 33.5 pg (28.0-32.0); MEAN CORPUSCULAR VOLUME 95.6 fL (80.0-94.0); PLATELET 90 x1000/uL (130-400); RED BLOOD CELL COUNT 2.96 mill/uL (4.7-6.1); RED CELL DISTRIBUTION WIDTH 14.4 % (11.6-14.6)
[2019-03-09] MEDS: PANTOPRAZOLE SODIUM 40 MG/VIAL IV SCH ×2 (10:01→20:54)
[2019-03-09] MEDS: CITALOPRAM HYDROBROMIDE 10MG TABLET PO SCH (10:01)
[2019-03-09] MEDS: AMLODIPINE 10MG TABLET PO SCH ×2 (10:10→20:56)
[2019-03-09] MEDS: INSULIN GLARGINE UD 100 UNITS/ML SYR SUBCUT SCH (10:13)
[2019-03-09] MEDS: LEVETIRACETAM 500MG PREMIX 100 ML IV SCH ×2 (10:14→20:55)
[2019-03-09 14:43] LABS: PLATELET ESTIMATE DECREASED
[2019-03-09] MEDS: CEFEPIME 1,000 MG in DEXTROSE 5% WATER 50 ML IV SCH (14:54)
[2019-03-09] MEDS ORDERED: HYDRALAZINE 10 MG in SODIUM CHLORIDE 0.9% 49.5 ML IV PRN (15:15)
[2019-03-10] VITALS: BP 134/85
[2019-03-10] MEDS: IPRATROPIUM/ALBUTEROL 0.5-3(2.5)MG/3ML NEB HHN SCH ×4 (02:41→20:31)
[2019-03-10] MEDS: DEXTROSE 5% WATER 1,000 ML IV SCH ×2 (03:55→13:40)
[2019-03-10 04:00] VITALS: BP 156/95
[2019-03-10] MEDS: CLONIDINE 0.2MG TABLET PO SCH ×3 (05:44→23:25)
[2019-03-10] MEDS: HYDRALAZINE HCL 100MG TABLET PO SCH ×3 (05:45→23:25)
[2019-03-10] MEDS: BLOOD SUGAR DIAGNOSTIC STRIP TEST SCH ×4 (05:45→18:13)
[2019-03-10] MEDS: LABETALOL HCL 200MG TABLET PO SCH ×3 (05:45→23:26)
[2019-03-10] MEDS: INSULIN LISPRO 100 UNITS/ML SUBCUT SCH ×4 (06:00→18:00)
[2019-03-10 07:57] VITALS: BP 140/78
[2019-03-10] MEDS: PANTOPRAZOLE SODIUM 40 MG/VIAL IV SCH ×2 (10:04→20:32)
[2019-03-10] MEDS: AMLODIPINE 10MG TABLET PO SCH ×2 (10:04→20:42)
[2019-03-10] MEDS: CITALOPRAM HYDROBROMIDE 10MG TABLET PO SCH (10:05)
[2019-03-10] MEDS: INSULIN GLARGINE UD 100 UNITS/ML SYR SUBCUT SCH (10:06)
[2019-03-10] MEDS: LEVETIRACETAM 500MG PREMIX 100 ML IV SCH ×2 (11:04→20:32)
[2019-03-10 12:00] VITALS: BP 153/88
[2019-03-10] MEDS: CEFEPIME 1,000 MG in DEXTROSE 5% WATER 50 ML IV SCH (14:30)
[2019-03-10 15:38] VITALS: BP 131/80
[2019-03-10 20:00] VITALS: BP 143/84
[2019-03-11] VITALS: BP 151/92
[2019-03-11] MEDS: IPRATROPIUM/ALBUTEROL 0.5-3(2.5)MG/3ML NEB HHN SCH ×4 (01:15→20:25)
[2019-03-11 04:00] VITALS: BP 140/81
[2019-03-11] MEDS: INSULIN LISPRO 100 UNITS/ML SUBCUT SCH ×4 (06:00→17:48)
[2019-03-11] MEDS: LABETALOL HCL 200MG TABLET PO SCH ×3 (06:16→22:25)
[2019-03-11] MEDS: HYDRALAZINE HCL 100MG TABLET PO SCH ×3 (06:17→22:24)
[2019-03-11] MEDS: BLOOD SUGAR DIAGNOSTIC STRIP TEST SCH ×4 (06:17→17:48)
[2019-03-11] MEDS: CLONIDINE 0.2MG TABLET PO SCH ×3 (06:17→22:25)
[2019-03-11 08:00] VITALS: BP_SYST 115; BP_DIAS 71; BP_DIAS 74
[2019-03-11 08:17] LABS: HEMATOCRIT. 28.5 % (42.0-52.0); MEAN CORPUSCULAR HEMOGLOBIN 33.5 pg (28.0-32.0); MEAN CORPUSCULAR VOLUME 95.1 fL (80.0-94.0); MEAN PLATELET VOLUME 9.8 fl (7.4-10.4); PLATELET 90 x1000/uL (130-400); RED BLOOD CELL COUNT 2.99 mill/uL (4.7-6.1); RED CELL DISTRIBUTION WIDTH 14.7 % (11.6-14.6)
[2019-03-11] MEDS: LEVETIRACETAM 500MG PREMIX 100 ML IV SCH ×2 (09:31→20:45)
[2019-03-11] MEDS: CITALOPRAM HYDROBROMIDE 10MG TABLET PO SCH (09:31)
[2019-03-11] MEDS: PANTOPRAZOLE SODIUM 40 MG/VIAL IV SCH ×2 (09:31→20:44)
[2019-03-11] MEDS: AMLODIPINE 10MG TABLET PO SCH ×2 (09:31→20:45)
[2019-03-11] MEDS: INSULIN GLARGINE UD 100 UNITS/ML SYR SUBCUT SCH (10:15)
[2019-03-11 12:00] VITALS: BP 141/86
[2019-03-11] MEDS: CEFEPIME 1,000 MG in DEXTROSE 5% WATER 50 ML IV SCH (13:27)
[2019-03-11 14:36] LABS: PLATELET ESTIMATE DECREASED
[2019-03-11 16:02] VITALS: BP 129/80
[2019-03-11 20:00] VITALS: BP 143/89
[2019-03-12] VITALS: BP 137/81
[2019-03-12] MEDS: IPRATROPIUM/ALBUTEROL 0.5-3(2.5)MG/3ML NEB HHN SCH ×4 (02:11→20:01)
[2019-03-12 04:00] VITALS: BP 138/83
[2019-03-12] MEDS: INSULIN LISPRO 100 UNITS/ML SUBCUT SCH ×4 (06:00→17:53)
[2019-03-12] MEDS: HYDRALAZINE HCL 100MG TABLET PO SCH ×3 (06:18→21:28)
[2019-03-12] MEDS: CLONIDINE 0.2MG TABLET PO SCH ×3 (06:18→21:28)
[2019-03-12] MEDS: LABETALOL HCL 200MG TABLET PO SCH ×3 (06:18→21:28)
[2019-03-12] MEDS: BLOOD SUGAR DIAGNOSTIC STRIP TEST SCH ×4 (06:34→17:53)
[2019-03-12 08:00] VITALS: BP 114/70
[2019-03-12] MEDS: LEVETIRACETAM 500MG PREMIX 100 ML IV SCH ×2 (08:51→21:27)
[2019-03-12] MEDS: AMLODIPINE 10MG TABLET PO SCH ×3 (08:52→21:27)
[2019-03-12] MEDS: CITALOPRAM HYDROBROMIDE 10MG TABLET PO SCH (08:52)
[2019-03-12] MEDS: PANTOPRAZOLE SODIUM 40 MG/VIAL IV SCH ×2 (08:52→21:27)
[2019-03-12] MEDS: INSULIN GLARGINE UD 100 UNITS/ML SYR SUBCUT SCH (11:10)
[2019-03-12 12:00] VITALS: BP 119/64
[2019-03-12] MEDS: CEFEPIME 1,000 MG in DEXTROSE 5% WATER 50 ML IV SCH (13:34)
[2019-03-12 16:00] VITALS: BP 135/83
[2019-03-12 20:00] VITALS: BP 159/85
[2019-03-13] VITALS: BP 127/73
[2019-03-13] MEDS: IPRATROPIUM/ALBUTEROL 0.5-3(2.5)MG/3ML NEB HHN SCH ×4 (01:53→21:21)
[2019-03-13 04:00] VITALS: BP 160/91
[2019-03-13] MEDS: CLONIDINE 0.2MG TABLET PO SCH ×2 (05:36→14:40)
[2019-03-13] MEDS: HYDRALAZINE HCL 100MG TABLET PO SCH ×2 (05:36→14:40)
[2019-03-13] MEDS: LABETALOL HCL 200MG TABLET PO SCH ×2 (05:36→14:41)
[2019-03-13] MEDS: INSULIN LISPRO 100 UNITS/ML SUBCUT SCH ×4 (05:49→18:00)
[2019-03-13] MEDS: BLOOD SUGAR DIAGNOSTIC STRIP TEST SCH ×4 (05:49→17:52)
[2019-03-13 07:16] LABS: BASOPHILS % 0.9 % (0.0-2.0); EOSINOPHILS % 2.9 % (0.0-5.0); HEMATOCRIT. 30.8 % (42.0-52.0); HEMOGLOBIN. 10.9 g/dL (14.0-18.0); LYMPHOCYTES % 12.4 % (20.0-50.0); MEAN CORPUSCULAR HEMOGLOBIN 34.3 pg (28.0-32.0); MEAN CORPUSCULAR VOLUME 96.5 fL (80.0-94.0); MONOCYTES % 7.5 % (2.0-8.0); NEUTROPHILS % 76.3 % (40.0-76.0); PLATELET 96 x1000/uL (130-400); RED BLOOD CELL COUNT 3.19 mill/uL (4.7-6.1); RED CELL DISTRIBUTION WIDTH 14.9 % (11.6-14.6)
[2019-03-13 08:00] VITALS: BP_SYST 114; BP_SYST 155; BP_DIAS 52; BP_DIAS 92
[2019-03-13] MEDS: PANTOPRAZOLE SODIUM 40 MG/VIAL IV SCH ×2 (08:39→21:46)
[2019-03-13] MEDS: LEVETIRACETAM 500MG PREMIX 100 ML IV SCH ×2 (08:39→21:41)
[2019-03-13] MEDS: CITALOPRAM HYDROBROMIDE 10MG TABLET PO SCH (08:39)
[2019-03-13] MEDS: AMLODIPINE 10MG TABLET PO SCH ×2 (08:45→21:46)
[2019-03-13] MEDS: INSULIN GLARGINE UD 100 UNITS/ML SYR SUBCUT SCH (10:22)
[2019-03-13 12:00] VITALS: BP 159/91
[2019-03-13] MEDS ORDERED: DEXT 5% WATER 500 ML IV ONE (13:30)
[2019-03-13] MEDS: CEFEPIME 1,000 MG in DEXTROSE 5% WATER 50 ML IV SCH (14:40)
[2019-03-13 16:00] VITALS: BP 149/88
[2019-03-13] MEDS ORDERED: LEVOFLOXACIN 500MG TABLET PO NR (18:45)
[2019-03-13 20:00] VITALS: BP 147/84
[2019-03-14] VITALS: BP_SYST 147; BP_SYST 157; BP_DIAS 90; BP_DIAS 91
[2019-03-14] MEDS: HYDRALAZINE HCL 100MG TABLET PO SCH ×4 (00:47→22:00)
[2019-03-14] MEDS: LABETALOL HCL 200MG TABLET PO SCH ×4 (00:47→22:00)
[2019-03-14] MEDS: CLONIDINE 0.2MG TABLET PO SCH ×4 (00:48→22:01)
[2019-03-14] MEDS: BLOOD SUGAR DIAGNOSTIC STRIP TEST SCH ×4 (00:48→17:58)
[2019-03-14] MEDS: IPRATROPIUM/ALBUTEROL 0.5-3(2.5)MG/3ML NEB HHN SCH ×4 (01:05→20:34)
[2019-03-14 04:00] VITALS: BP 147/91
[2019-03-14] MEDS: INSULIN LISPRO 100 UNITS/ML SUBCUT SCH ×4 (06:00→17:58)
[2019-03-14 08:00] VITALS: BP 131/80
[2019-03-14] MEDS: LEVETIRACETAM 500MG PREMIX 100 ML IV SCH ×2 (08:44→20:10)
[2019-03-14] MEDS: CITALOPRAM HYDROBROMIDE 10MG TABLET PO SCH (08:44)
[2019-03-14] MEDS: AMLODIPINE 10MG TABLET PO SCH ×2 (08:45→20:11)
[2019-03-14] MEDS: PANTOPRAZOLE SODIUM 40 MG/VIAL IV SCH ×2 (08:45→20:11)
[2019-03-14 08:53] LABS: BASOPHILS % 0.5 % (0.0-2.0); EOSINOPHILS % 2.8 % (0.0-5.0); HEMATOCRIT. 31.4 % (42.0-52.0); HEMOGLOBIN. 10.7 g/dL (14.0-18.0); LYMPHOCYTES % 12.9 % (20.0-50.0); MEAN CORPUSCULAR HEMOGLOBIN 32.8 pg (28.0-32.0); MEAN CORPUSCULAR VOLUME 96.3 fL (80.0-94.0); MEAN PLATELET VOLUME 10.1 fl (7.4-10.4); MONOCYTES % 10.6 % (2.0-8.0); NEUTROPHILS % 73.2 % (40.0-76.0); PLATELET 115 x1000/uL (130-400); RED BLOOD CELL COUNT 3.26 mill/uL (4.7-6.1); RED CELL DISTRIBUTION WIDTH 14.7 % (11.6-14.6)
[2019-03-14] MEDS: LEVOFLOXACIN 250MG TABLET PO SCH (10:56)
[2019-03-14] MEDS: INSULIN GLARGINE UD 100 UNITS/ML SYR SUBCUT SCH (10:58)
[2019-03-14 12:00] VITALS: BP 149/87
[2019-03-14] MEDS: DEXTROSE 5% WATER 1,000 ML IV SCH (13:55)
[2019-03-14 16:00] VITALS: BP 105/62
[2019-03-14 20:00] VITALS: BP 123/72
[2019-03-14] MEDS: CLONIDINE 0.1MG TABLET PO PRN (22:00)
[2019-03-15] VITALS: BP 100/62
[2019-03-15] MEDS: BLOOD SUGAR DIAGNOSTIC STRIP TEST SCH ×4 (00:17→17:52)
[2019-03-15] MEDS: IPRATROPIUM/ALBUTEROL 0.5-3(2.5)MG/3ML NEB HHN SCH ×4 (01:47→21:22)
[2019-03-15 04:00] VITALS: BP 138/79
[2019-03-15] MEDS: DEXTROSE 5% WATER 1,000 ML IV SCH ×2 (05:35→21:59)
[2019-03-15] MEDS: INSULIN LISPRO 100 UNITS/ML SUBCUT SCH ×4 (05:45→17:52)
[2019-03-15] MEDS: LABETALOL HCL 200MG TABLET PO SCH ×3 (05:54→21:59)
[2019-03-15] MEDS: HYDRALAZINE HCL 100MG TABLET PO SCH ×3 (05:55→22:00)
[2019-03-15] MEDS: CLONIDINE 0.2MG TABLET PO SCH ×3 (05:55→22:00)
[2019-03-15 07:49] LABS: HEMATOCRIT. 27.7 % (42.0-52.0); HEMOGLOBIN. 9.4 g/dL (14.0-18.0); MEAN CORPUSCULAR HEMOGLOBIN 32.5 pg (28.0-32.0); MEAN CORPUSCULAR VOLUME 95.8 fL (80.0-94.0); MEAN PLATELET VOLUME 9.9 fl (7.4-10.4); PLATELET 115 x1000/uL (130-400); RED BLOOD CELL COUNT 2.89 mill/uL (4.7-6.1); RED CELL DISTRIBUTION WIDTH 14.8 % (11.6-14.6)
[2019-03-15 08:00] VITALS: BP 134/83
[2019-03-15] MEDS: LEVETIRACETAM 500MG PREMIX 100 ML IV SCH ×2 (09:18→20:48)
[2019-03-15] MEDS: PANTOPRAZOLE SODIUM 40 MG/VIAL IV SCH ×2 (09:18→20:51)
[2019-03-15] MEDS: CITALOPRAM HYDROBROMIDE 10MG TABLET PO SCH (09:19)
[2019-03-15] MEDS: AMLODIPINE 10MG TABLET PO SCH ×2 (09:19→20:51)
[2019-03-15] MEDS: INSULIN GLARGINE UD 100 UNITS/ML SYR SUBCUT SCH (09:45)
[2019-03-15] MEDS: LEVOFLOXACIN 250MG TABLET PO SCH (10:00)
[2019-03-15 12:00] VITALS: BP 138/85
[2019-03-15 16:00] VITALS: BP 140/80
[2019-03-15 17:07] LABS: PLATELET ESTIMATE DECREASED
[2019-03-15 20:00] VITALS: BP 143/93
[2019-03-16] VITALS: BP 118/58
[2019-03-16] MEDS: IPRATROPIUM/ALBUTEROL 0.5-3(2.5)MG/3ML NEB HHN SCH ×4 (02:47→21:25)
[2019-03-16 04:00] VITALS: BP 138/88
[2019-03-16] MEDS: INSULIN LISPRO 100 UNITS/ML SUBCUT SCH ×5 (06:00→23:31)
[2019-03-16] MEDS: HYDRALAZINE HCL 100MG TABLET PO SCH ×3 (06:30→22:35)
[2019-03-16] MEDS: CLONIDINE 0.2MG TABLET PO SCH ×3 (06:30→22:36)
[2019-03-16] MEDS: BLOOD SUGAR DIAGNOSTIC STRIP TEST SCH ×5 (06:31→23:30)
[2019-03-16] MEDS: LABETALOL HCL 200MG TABLET PO SCH ×3 (06:31→22:36)
[2019-03-16 07:04] LABS: HEMATOCRIT. 30.5 % (42.0-52.0); HEMOGLOBIN. 10.1 g/dL (14.0-18.0); MEAN CORPUSCULAR VOLUME 96.8 fL (80.0-94.0); MEAN PLATELET VOLUME 10.6 fl (7.4-10.4); PLATELET 114 x1000/uL (130-400); RED BLOOD CELL COUNT 3.15 mill/uL (4.7-6.1); RED CELL DISTRIBUTION WIDTH 14.8 % (11.6-14.6)
[2019-03-16 08:00] VITALS: BP 121/76
[2019-03-16] MEDS: CITALOPRAM HYDROBROMIDE 10MG TABLET PO SCH (09:30)
[2019-03-16] MEDS: LEVETIRACETAM 500MG PREMIX 100 ML IV SCH ×2 (09:30→20:25)
[2019-03-16] MEDS: AMLODIPINE 10MG TABLET PO SCH ×2 (09:31→20:26)
[2019-03-16] MEDS: PANTOPRAZOLE SODIUM 40 MG/VIAL IV SCH ×2 (09:31→20:26)
[2019-03-16] MEDS: LEVOFLOXACIN 250MG TABLET PO SCH (10:30)
[2019-03-16] MEDS: INSULIN GLARGINE UD 100 UNITS/ML SYR SUBCUT SCH (10:30)
[2019-03-16] MEDS ORDERED: TOPUD PO (11:19)
[2019-03-16] MEDS ORDERED: LABE200T28 PO (11:19)
[2019-03-16] MEDS ORDERED: LOSA50TA3 PO (11:19)
[2019-03-16] MEDS ORDERED: INSLIS SUBCUT (11:19)
[2019-03-16] MEDS ORDERED: AMLO10TA80 PO (11:19)
[2019-03-16] MEDS ORDERED: LEVE500T19 MT (11:19)
[2019-03-16] MEDS ORDERED: HYDR100T26 PO (11:19)
[2019-03-16] MEDS ORDERED: PANT40TA4 MT (11:19)
[2019-03-16] MEDS ORDERED: LANTUSUD SUBCUT (11:19)
[2019-03-16] MEDS ORDERED: CLON0.2T12 PO (11:19)
[2019-03-16] MEDS ORDERED: CITA10TA16 PO (11:19)
[2019-03-16 12:00] VITALS: BP 142/84
[2019-03-16 16:00] VITALS: BP 117/67
[2019-03-16 16:27] LABS: PLATELET ESTIMATE DECREASED
[2019-03-16 20:00] VITALS: BP 145/89
[2019-03-17] VITALS: BP 112/66
[2019-03-17] MEDS: IPRATROPIUM/ALBUTEROL 0.5-3(2.5)MG/3ML NEB HHN SCH ×4 (01:55→20:52)
[2019-03-17 04:00] VITALS: BP 150/84
[2019-03-17] MEDS: INSULIN LISPRO 100 UNITS/ML SUBCUT SCH ×3 (06:00→18:00)
[2019-03-17] MEDS: CLONIDINE 0.2MG TABLET PO SCH ×3 (06:18→21:37)
[2019-03-17] MEDS: LABETALOL HCL 200MG TABLET PO SCH ×3 (06:18→21:37)
[2019-03-17] MEDS: HYDRALAZINE HCL 100MG TABLET PO SCH ×3 (06:18→21:33)
[2019-03-17] MEDS: BLOOD SUGAR DIAGNOSTIC STRIP TEST SCH ×3 (06:26→18:02)
[2019-03-17 06:52] LABS: HEMATOCRIT. 29.8 % (42.0-52.0); MEAN CORPUSCULAR HEMOGLOBIN 32.2 pg (28.0-32.0); MEAN CORPUSCULAR VOLUME 95.7 fL (80.0-94.0); MEAN PLATELET VOLUME 10.1 fl (7.4-10.4); PLATELET 120 x1000/uL (130-400); RED BLOOD CELL COUNT 3.12 mill/uL (4.7-6.1); RED CELL DISTRIBUTION WIDTH 14.6 % (11.6-14.6)
[2019-03-17 07:56] VITALS: BP 128/80
[2019-03-17] MEDS: LEVETIRACETAM 500MG PREMIX 100 ML IV SCH ×2 (08:25→21:32)
[2019-03-17] MEDS: AMLODIPINE 10MG TABLET PO SCH ×2 (08:26→21:33)
[2019-03-17] MEDS: PANTOPRAZOLE SODIUM 40 MG/VIAL IV SCH ×2 (08:26→21:33)
[2019-03-17] MEDS: CITALOPRAM HYDROBROMIDE 10MG TABLET PO SCH (08:26)
[2019-03-17 12:00] VITALS: BP 141/88
[2019-03-17] MEDS: INSULIN GLARGINE UD 100 UNITS/ML SYR SUBCUT SCH (12:40)
[2019-03-17 13:54] LABS: PLATELET ESTIMATE SLIGHTLY DECREASED
[2019-03-17 16:00] VITALS: BP 120/76
[2019-03-17 20:00] VITALS: BP 134/78
[2019-03-18] VITALS (7 sets, daily range): BP systolic 106–135; BP diastolic 63–83
[2019-03-18] MEDS: IPRATROPIUM/ALBUTEROL 0.5-3(2.5)MG/3ML NEB HHN SCH ×4 (01:32→20:37)
[2019-03-18] MEDS: INSULIN LISPRO 100 UNITS/ML SUBCUT SCH ×4 (06:00→18:00)
[2019-03-18] MEDS: LABETALOL HCL 200MG TABLET PO SCH ×3 (06:26→23:36)
[2019-03-18] MEDS: CLONIDINE 0.2MG TABLET PO SCH ×3 (06:26→23:36)
[2019-03-18] MEDS: BLOOD SUGAR DIAGNOSTIC STRIP TEST SCH ×4 (06:27→18:13)
[2019-03-18] MEDS: HYDRALAZINE HCL 100MG TABLET PO SCH ×3 (06:27→23:36)
[2019-03-18 06:46] LABS: HEMATOCRIT. 30.2 % (42.0-52.0); HEMOGLOBIN. 10.2 g/dL (14.0-18.0); MEAN CORPUSCULAR HEMOGLOBIN 32.6 pg (28.0-32.0); MEAN CORPUSCULAR VOLUME 96.6 fL (80.0-94.0); MEAN PLATELET VOLUME 10.5 fl (7.4-10.4); PLATELET 121 x1000/uL (130-400); RED BLOOD CELL COUNT 3.13 mill/uL (4.7-6.1); RED CELL DISTRIBUTION WIDTH 15.4 % (11.6-14.6)
[2019-03-18] MEDS: PANTOPRAZOLE SODIUM 40 MG/VIAL IV SCH ×2 (08:29→21:30)
[2019-03-18] MEDS: CITALOPRAM HYDROBROMIDE 10MG TABLET PO SCH (08:30)
[2019-03-18] MEDS: AMLODIPINE 10MG TABLET PO SCH ×2 (08:30→21:31)
[2019-03-18] MEDS: LEVETIRACETAM 500MG PREMIX 100 ML IV SCH ×2 (09:33→21:30)
[2019-03-18 09:36] LABS: PLATELET ESTIMATE SLIGHTLY DECREASED
[2019-03-18] MEDS: INSULIN GLARGINE UD 100 UNITS/ML SYR SUBCUT SCH (09:43)
[2019-03-19] VITALS: BP 146/87
[2019-03-19] MEDS: IPRATROPIUM/ALBUTEROL 0.5-3(2.5)MG/3ML NEB HHN SCH ×2 (01:51→08:55)
[2019-03-19 04:00] VITALS: BP 129/84
[2019-03-19] MEDS: LABETALOL HCL 200MG TABLET PO SCH (05:45)
[2019-03-19] MEDS: INSULIN LISPRO 100 UNITS/ML SUBCUT SCH ×2 (05:45)
[2019-03-19] MEDS: HYDRALAZINE HCL 100MG TABLET PO SCH (05:45)
[2019-03-19] MEDS: CLONIDINE 0.2MG TABLET PO SCH (05:46)
[2019-03-19 07:19] LABS: HEMOGLOBIN. 8.8 g/dL (14.0-18.0); MEAN CORPUSCULAR HEMOGLOBIN 32.4 pg (28.0-32.0); MEAN CORPUSCULAR VOLUME 95.5 fL (80.0-94.0); PLATELET 133 x1000/uL (130-400); RED BLOOD CELL COUNT 2.72 mill/uL (4.7-6.1); RED CELL DISTRIBUTION WIDTH 14.9 % (11.6-14.6)
[2019-03-19] MEDS: CITALOPRAM HYDROBROMIDE 10MG TABLET PO SCH (08:40)
[2019-03-19] MEDS: AMLODIPINE 10MG TABLET PO SCH (08:40)
[2019-03-19] MEDS: PANTOPRAZOLE SODIUM 40 MG/VIAL IV SCH (08:40)
[2019-03-19] MEDS: LEVETIRACETAM 500MG PREMIX 100 ML IV SCH (08:40)
[2019-03-19] MEDS: INSULIN GLARGINE UD 100 UNITS/ML SYR SUBCUT SCH (10:47)
[2019-03-19 11:53] LABS: PLATELET ESTIMATE NORMAL
[2019-03-19 18:21] LABS: TOTAL IRON BINDING CAPACITY 181 ug/dL (250-450)
[2019-03-19 18:41] LABS: FOLIC ACID (FOLATE) SERUM 19.4 ng/mL (>5.38)
== END 2019-03-19 11:59 | DRG 871 ==
LOC: ER 12:04 → EDBEDREQSVC 13:14 → MICUSO 13:31 → EDBEDREQ 13:33 → ENRESERV 14:36 → 6WST 02-26 17:43 → 6EST 03-09 11:28
PROVIDERS: ADMIT Internal Medicine; ATTEND Internal Medicine
PROC: 5A1945Z Respiratory Ventilation, 24-96 Consecutive Hours (ICD-10-PCS; principal; 2019-02-17)
PROC: 0BH17EZ Insertion of Endotracheal Airway into Trachea, Via Natural or Artificial Opening (ICD-10-PCS; 2019-02-17)
PROC: 02HV33Z Insertion of Infusion Device into Superior Vena Cava, Percutaneous Approach (ICD-10-PCS; 2019-02-17)
PROC: 0DH68UZ Insertion of Feeding Device into Stomach, Via Natural or Artificial Opening Endoscopic (ICD-10-PCS; 2019-03-03)
DX: A41.9 Sepsis, unspecified organism (principal); I61.8 Other nontraumatic intracerebral hemorrhage; J96.01 Acute respiratory failure with hypoxia; J69.0 Pneumonitis due to inhalation of food and vomit; N17.0 Acute kidney failure with tubular necrosis; I21.4 Non-ST elevation (NSTEMI) myocardial infarction; G93.6 Cerebral edema; G92 Toxic encephalopathy; I63.81 Other cerebral infarction due to occlusion or stenosis of small artery; J15.6 Pneumonia due to other Gram-negative bacteria; R53.2 Functional quadriplegia; E87.2 Acidosis; I16.9 Hypertensive crisis, unspecified; E46 Unspecified protein-calorie malnutrition; D61.818 Other pancytopenia; E87.0 Hyperosmolality and hypernatremia; I13.0 Hypertensive heart and chronic kidney disease with heart failure and stage 1 through stage 4 chronic kidney disease, or unspecified chronic kidney disease; I16.1 Hypertensive emergency; R47.01 Aphasia; N18.9 Chronic kidney disease, unspecified; E78.5 Hyperlipidemia, unspecified; E87.6 Hypokalemia; K29.70 Gastritis, unspecified, without bleeding; F17.210 Nicotine dependence, cigarettes, uncomplicated; I25.10 Atherosclerotic heart disease of native coronary artery without angina pectoris; K44.9 Diaphragmatic hernia without obstruction or gangrene; R13.12 Dysphagia, oropharyngeal phase; M19.90 Unspecified osteoarthritis, unspecified site; K21.9 Gastro-esophageal reflux disease without esophagitis; R73.9 Hyperglycemia, unspecified; T38.0X5A Adverse effect of glucocorticoids and synthetic analogues, initial encounter; I50.9 Heart failure, unspecified; I25.2 Old myocardial infarction; Z79.4 Long term (current) use of insulin; Z86.73 Personal history of transient ischemic attack (TIA), and cerebral infarction without residual deficits; Z79.899 Other long term (current) drug therapy; Z89.222 Acquired absence of left upper limb above elbow; Y92.89 Other specified places as the place of occurrence of the external cause; Z68.23 Body mass index [BMI] 23.0-23.9, adult
CPT/HCPCS: 31500; 36415; 36556; 36600; 70544; 70553; 71045; 76770; 80048; 80053; 80076; 80202; 80305; 80320; 81003; 82140; 82375; 82550; 82570; 82607; 82728; 82746; 82805; 82962; 83036; 83540; 83550; 83721; 83735; 83880; 83935; 84100; 84155; 84156; 84165; 84439; 84443; 84478; 84484; 85025; 85044; 86038; 86160; 86705; 86709; 86803; 87070; 87077; 87106; 87186; 87340; 87389; 87493; 92610; 93005; 93306; 93971; 94003; 94640; 99285; A6261; C9113; J0295; J0330; J0360; J0690; J0692; J0713; J1100; J1815; J1953; J2060; J2250; J2270; J2405; J2543; J2704; J3010; J3370; J3480; J3490; J7040; J7050; J7060; J7070; J7620; A4315; G0480